=== PATIENT | male | born 1945 | race Caucasian/White ===

== ENCOUNTER → 2020-06-07 | Outpatient (CLI) | payer MEDICARE ==
[~2020-06-07] MED LIST: ALDACTONE50 MG PO; COUMADIN 77.5 MG/TAB PO; INDERAL 10MG10 MG PO; LACTULOSE10 GM/153 PO; LASIX 40MG TABL40 MG PO; PROTONIX 40MG T40 MG PO
[2020-06-07 16:40] LABS: BASO # 0.1 (0.0-0.2); BASO % 1.3 % (0.0-2.0); EOS # 0.6 (0.0-0.7); EOS % 10.5 % (0-4.0); GRAN # 2.8 (1.4-6.5); GRAN % 51.8 % (42.2-75.2); HEMATOCRIT 37.7 % (42.0-52.0); HEMOGLOBIN 12.4 g/dl (13.5-18.0); LYMPH # 1.3 (1.2-3.4); LYMPH % 24.2 % (20.0-51.0); MEAN CELL VOLUME 89 fl (80.0-100.0); MEAN CORPUSCULAR HEMOGLOBIN 29 pg (27.0-31.0); MEAN CORPUSCULAR HGB CONC 33 g/dl (33.0-37.0); MEAN PLATELET VOLUME 9.6 fl (7.4-10.4); MONO # 0.7 (0.1-0.6); PLATELET COUNT 162 K/mm3 (130-400); RED BLOOD COUNT 4.23 M/mm3 (4.20-5.60); REDCELL DISTRIBUTION WIDTH-CV 17.8 % (11.5-14.5)
[2020-06-07 16:49] LABS: INR 5.4 (0.8-3.0); PROTHROMBIN TIME 61.1 SECONDS (9.7-12.8)
[2020-06-07 17:03] LABS: ALBUMIN 3.4 gm/dL (3.5-5.0); BILIRUBIN,TOTAL 2.7 mg/dL (0.0-1.0); CALCIUM 8.7 mg/dL (8.4-10.2); CREATININE, serum 1.14 (0.66-1.25); POTASSIUM 4.5 mmol/L (3.4-5.0); TOTAL PROTEIN 8.5 gm/dL (6.4-8.2)
== END ==
LOC: COL.LAB 16:11
PROVIDERS: Family Medicine
DX: K74.69 Other cirrhosis of liver (principal); K72.90 Hepatic failure, unspecified without coma

== ENCOUNTER 2020-06-08 21:06 | Inpatient (IN) | payer MEDICARE ==
[~2020-06-08] VITALS: Ht 177.8 cm; Wt 75.1 kg
[~2020-06-08 21:06] MED LIST changes: -ALDACTONE50 MG PO; -COUMADIN 77.5 MG/TAB PO; -INDERAL 10MG10 MG PO; -LACTULOSE10 GM/153 PO; -PROTONIX 40MG T40 MG PO
[2020-06-08 22:58] LABS: BASO % 0.7 % (0.0-2.0); EOS # 0.1 (0.0-0.7); EOS % 2.2 % (0-4.0); GRAN # 2.5 (1.4-6.5); GRAN % 61.6 % (42.2-75.2); HEMATOCRIT 37.2 % (42.0-52.0); HEMOGLOBIN 12.4 g/dl (13.5-18.0); LYMPH % 24.2 % (20.0-51.0); MEAN CELL VOLUME 89 fl (80.0-100.0); MEAN CORPUSCULAR HEMOGLOBIN 30 pg (27.0-31.0); MEAN CORPUSCULAR HGB CONC 33 g/dl (33.0-37.0); MEAN PLATELET VOLUME 9.7 fl (7.4-10.4); MONO # 0.5 (0.1-0.6); MONO % 11.1 % (1.7-9.3); PLATELET COUNT 141 K/mm3 (130-400); RED BLOOD COUNT 4.19 M/mm3 (4.20-5.60); REDCELL DISTRIBUTION WIDTH-CV 18.1 % (11.5-14.5)
[2020-06-08 23:02] LABS: INR 4.1 (0.8-3.0)
[2020-06-08 23:05] LABS: ALBUMIN 3.3 gm/dL (3.5-5.0); BILIRUBIN,TOTAL 3.2 mg/dL (0.0-1.0); CALCIUM 8.3 mg/dL (8.4-10.2); CREATININE, serum 0.86 (0.66-1.25); POTASSIUM 4.1 mmol/L (3.4-5.0); TOTAL PROTEIN 8.3 gm/dL (6.4-8.2)
[2020-06-08 23:11] LABS: PROTHROMBIN TIME 46.1 SECONDS (9.7-12.8)
[2020-06-09] VITALS (456 sets, daily range): BP systolic 92–113; BP diastolic 53–72; PULSE 45–66; TEMP 97.5–98.9; O2SAT 70–100
[2020-06-09 01:17] LABS: HEMATOCRIT 37.4 % (42.0-52.0); HEMOGLOBIN 12.3 g/dl (13.5-18.0)
--- NOTE | 2020-06-09 01:35 | NUR ---
Report received from Nataliya BRADFORD in ED. Pt resting in bed with song NICE at bedside. Medications reviewed at this time. Assisted to ICU bed 07 with trace evidence technician at this time. Once pt and staff arrived to ICU 07 pt as assisted with transfer from stretcher to bed X2 assist. Pt pleasant and cooperative with cares and assessment.
[2020-06-09] MEDS ORDERED: ALDACTONE50 MG PO (04:09)
[2020-06-09] MEDS ORDERED: PROTONIX 40MG T40 MG PO (04:11)
[2020-06-09] MEDS ORDERED: COUMADIN 77.5 MG/TAB PO (04:11)
[2020-06-09] MEDS ORDERED: INDERAL 10MG10 MG PO (04:12)
[2020-06-09] MEDS ORDERED: LACTULOSE10 GM/153 PO (04:15)
[2020-06-09 05:11] LABS: INR 3.6 (0.8-3.0); PROTHROMBIN TIME 40.7 SECONDS (9.7-12.8)
--- NOTE | 2020-06-09 08:00 | NUR ---
Shift assessment complete at this time. Plan of care reviewed at bedside with patient. Additional time taken to address any other needs or concerns. Vitals stable at this time. Pt denies pain or any other discomforts. Bed in low position, call light within reach, will continue to monitor.
[2020-06-09 09:59] LABS: EOS # 0.3 (0.0-0.7); EOS % 7.6 % (0-4.0); GRAN # 2.4 (1.4-6.5); GRAN % 59.6 % (42.2-75.2); HEMOGLOBIN 11.7 g/dl (13.5-18.0); LYMPH # 0.9 (1.2-3.4); LYMPH % 21.7 % (20.0-51.0); MEAN CELL VOLUME 90 fl (80.0-100.0); MEAN CORPUSCULAR HEMOGLOBIN 30 pg (27.0-31.0); MEAN CORPUSCULAR HGB CONC 33 g/dl (33.0-37.0); MEAN PLATELET VOLUME 9.6 fl (7.4-10.4); MONO # 0.4 (0.1-0.6); MONO % 10.1 % (1.7-9.3); PLATELET COUNT 130 K/mm3 (130-400); RED BLOOD COUNT 3.96 M/mm3 (4.20-5.60); REDCELL DISTRIBUTION WIDTH-CV 17.9 % (11.5-14.5)
[2020-06-09 10:08] LABS: HEMATOCRIT 35.6 % (42.0-52.0)
[2020-06-09 10:17] LABS: ALBUMIN 2.8 gm/dL (3.5-5.0); BILIRUBIN,TOTAL 2.9 mg/dL (0.0-1.0); CALCIUM 8.3 mg/dL (8.4-10.2); CREATININE, serum 0.87 (0.66-1.25); POTASSIUM 3.7 mmol/L (3.4-5.0); TOTAL PROTEIN 7.6 gm/dL (6.4-8.2)
--- NOTE | 2020-06-09 12:00 | NUR ---
Pt resting comfortably in bed. Denies pain or any other discomfort at this time. Vitals stable. Bed in low position, call light within reach, will continue to monitor.
--- NOTE | 2020-06-09 12:28 | NUR ---
stopped by but nothing needed at this time.
--- NOTE | 2020-06-09 14:02 | NUR ---
Plan: Plan is unknown at this time. Assessment: SW's met with patient in room about care plan. Patient reports that he resides in [place] with his nephew [place] who is also the DPOA> Lin , . Patient reports that he has only lived here from a week approx. Patient reports that he uses a cane and walker. PCP is Dr. Elma Alves. Patient reports that he was able to drive about a week ago. Patient Action: Will continue to follow for additional supports.
--- NOTE | 2020-06-09 16:00 | NUR ---
Pt resting comofortably in bed. Denies pain or any other discomforts. Bed in low position, call light within reach, will continue to monitor. Vitals stable at this time.
[2020-06-09 16:15] LABS: HEMATOCRIT 37.3 % (42.0-52.0); HEMOGLOBIN 12.2 g/dl (13.5-18.0)
--- NOTE | 2020-06-09 17:17 | NUR ---
DIET CHANGED TO LOW NA PT TOLERATED LUNCH PER DR RODRIGUEZ'S ORDER
--- NOTE | 2020-06-09 18:24 | NUR ---
PT TRANSFERED TO UNIT @ 1800 ACCOMPANIED BY NURSE. AOX4. DENIES PAIN. ABD LARGE AND ROUNDED FIRM. KNOWN ASCITES. SKIN ASSESSMENT REVEALED A BLANCHABLE REDNESS TO COCCYX. PT EDUCATED ON PRESSURE ULCER PREVENTION. ON 3L OXYMASK O2 SAT 92%. IV TO RT WRIST INTACT. REFUSED BRIEF.
--- NOTE | 2020-06-09 20:00 | NUR ---
Report received, assumed care for pairer. Assessment complete. A&Ox3. Noted to be jaundice. Abdomen distended and firm. Denies pain/nausea/shortness of breath. VS are stable. INT to right forearm flushes without difficulty. O2@3L/NC. Denies questions/concerns. Call light in reach. Will monitor.
[2020-06-10 00:39] VITALS: BP 99/73; PULSE 66; TEMP 98.2
--- NOTE | 2020-06-10 05:00 | NUR ---
Rested off and on this shift. Denied pain/shortness of breath/nausea. Has tolerated diet. Refused lactulose. Has been up to commode to attempt to have bowel movement. Is very weak and a two assist transfer. Denies needs. Call light in reach. Will monitor.
[2020-06-10 05:23] VITALS: BP 100/65; PULSE 58; TEMP 98.2
[2020-06-10 08:50] VITALS: BP 96/64; PULSE 80; TEMP 98.2
[2020-06-10 09:29] LABS: BASO % 0.5 % (0.0-2.0); EOS # 0.3 (0.0-0.7); EOS % 7.9 % (0-4.0); GRAN # 2.6 (1.4-6.5); GRAN % 66.2 % (42.2-75.2); HEMOGLOBIN 11.9 g/dl (13.5-18.0); LYMPH # 0.8 (1.2-3.4); LYMPH % 19.3 % (20.0-51.0); MEAN CELL VOLUME 92 fl (80.0-100.0); MEAN CORPUSCULAR HEMOGLOBIN 30 pg (27.0-31.0); MEAN CORPUSCULAR HGB CONC 32 g/dl (33.0-37.0); MEAN PLATELET VOLUME 9.9 fl (7.4-10.4); MONO # 0.2 (0.1-0.6); MONO % 5.8 % (1.7-9.3); PLATELET COUNT 139 K/mm3 (130-400); RED BLOOD COUNT 4.02 M/mm3 (4.20-5.60)
[2020-06-10 09:31] LABS: HEMATOCRIT 36.9 % (42.0-52.0)
[2020-06-10 09:40] LABS: CALCIUM 8.4 mg/dL (8.4-10.2); CREATININE, serum 0.86 (0.66-1.25); POTASSIUM 4.1 mmol/L (3.4-5.0)
[2020-06-10 09:42] LABS: INR 1.9 (0.8-3.0); PROTHROMBIN TIME 20.9 SECONDS (9.7-12.8)
[2020-06-10 10:08] LABS: BILIRUBIN,DIRECT 0.4 mg/dL (0.0-0.4)
[2020-06-10 12:36] VITALS: BP 90/60; PULSE 74; TEMP 98.2
[2020-06-10 16:20] VITALS: BP 109/69; PULSE 69; TEMP 98
--- NOTE | 2020-06-10 18:30 | NUR ---
ASIDE FROM THE PATIENT REFUSING AFTERNOON LACTULOSE, PT HAD AN UNEVENTFUL DAY. NO FURTHER CONCERNS. WILL ENDORSE TO NIGHT RN.
[2020-06-10 20:30] VITALS: BP 103/68; PULSE 66; TEMP 98.4
--- NOTE | 2020-06-10 20:30 | NUR ---
Initial shift assessment done-- has been resting quietly for the past hour- no requests, Tele on, refusing lactulose tonight- states will take in the morning, VSS
[2020-06-11 01:00] VITALS: BP 95/54; PULSE 64; TEMP 98.4
[2020-06-11 04:10] VITALS: BP 96/57; PULSE 60; TEMP 97.9
--- NOTE | 2020-06-11 06:04 | NUR ---
Did sleep well last night- Up to BSC x1 for urine,no stool. VSS.
[2020-06-11 07:09] VITALS: BP 102/66; PULSE 61; TEMP 98.2
[2020-06-11 07:12] LABS: BASO % 0.8 % (0.0-2.0); EOS # 0.3 (0.0-0.7); EOS % 8.3 % (0-4.0); GRAN # 1.9 (1.4-6.5); GRAN % 53.4 % (42.2-75.2); HEMOGLOBIN 11.5 g/dl (13.5-18.0); LYMPH # 0.9 (1.2-3.4); LYMPH % 26.1 % (20.0-51.0); MEAN CELL VOLUME 91 fl (80.0-100.0); MEAN CORPUSCULAR HEMOGLOBIN 30 pg (27.0-31.0); MEAN CORPUSCULAR HGB CONC 33 g/dl (33.0-37.0); MEAN PLATELET VOLUME 10.1 fl (7.4-10.4); MONO # 0.4 (0.1-0.6); MONO % 11.4 % (1.7-9.3); PLATELET COUNT 138 K/mm3 (130-400); RED BLOOD COUNT 3.85 M/mm3 (4.20-5.60); REDCELL DISTRIBUTION WIDTH-CV 17.9 % (11.5-14.5)
[2020-06-11 07:13] LABS: HEMATOCRIT 35.1 % (42.0-52.0)
[2020-06-11 07:22] LABS: ALBUMIN 2.7 gm/dL (3.5-5.0); BILIRUBIN,TOTAL 2.6 mg/dL (0.0-1.0); CALCIUM 8.3 mg/dL (8.4-10.2); CREATININE, serum 0.75 (0.66-1.25); POTASSIUM 4.1 mmol/L (3.4-5.0); TOTAL PROTEIN 7.4 gm/dL (6.4-8.2)
--- NOTE | 2020-06-11 09:10 | NUR ---
Initial visit; Patient thanked Tobacco Checkout Clerk for looking in on him and offering God's blessings.
[2020-06-11] MEDS ORDERED: LASIX 20MG TABL20 MG PO ×3 (10:20→10:21)
[2020-06-11 11:50] VITALS: BP 110/57; PULSE 63; TEMP 97
--- NOTE | 2020-06-11 15:32 | NUR ---
Stopperer Assembler attended clinical rounds and patient is ready for discharge today. KERRI met with patient, who lives with his niece Rola in [place]. KERRI spoke with Rola on the phone in patient's room. Patient and Rola are agreeable to Home Health and have selected [facility]. KERRI faxed a referral to Adela at [facility] who advised they can accept referral. KERRI faxed discharge orders. KERRI collaborated with Hospitalist to order exercise oximetry. Per RT, patient qualifies for 3 liters. KERRI collaborated with patient's niece Rola who advised patient was private paying for oxygen through [facility] but wants to switch to [facility]. KERRI faxed facesheet, order for oxygen, H&P, and RT assessment to [facility]. Rola reports they want a portable oxygen system and KERRI advised that per Jennifer at [facility], an assessment would have to be completed by [facility]'s RT. Rola is agreeable to this and advised that patient still has some oxygen tanks left over from [place] and they have a concentrator that was given to them by a friend. Rola reports they don't need anything from [facility] today, but would follow up to schedule RT assessment for a portable system. KERRI provided this update to Jennifer at [facility]. Earlier in the day, Rola advised patient would need a walker, but Rola now advised that patient actually has a walker. KERRI contacted Jennifer at [facility] and cancelled order for FWW. No additional needs at this time.
[2020-06-11 17:35] LABS: HEPATITIS B SURFACE ANTIGEN Negative (Negative); HEPATITIS C VIRUS ANTIBODY Negative (Negative)
[2020-06-12 03:44] LABS: HEPATITIS B CORE AB,TOTAL Positive (())
[2020-06-12 14:49] LABS: HEPATITIS AB (HAV) IGG INDEX 11.28 Index (<=1.00)
== END 2020-06-11 16:00 | disposition home or self-care (01) | DRG 813 ==
LOC: COL.ER 21:06 → ICU 23:20 → COL.ER 23:20 → MEDICAL 06-09 17:30 → ICU 06-09 17:30 → MEDICAL 06-09 17:30
PROVIDERS: Emergency Medicine; Internal Medicine Gastroenterology; Physician Assistant; Student in an Organized Health Care Education/Training Program; ADMIT Hospitalist
DX: D68.32 Hemorrhagic disorder due to extrinsic circulating anticoagulants (principal); J96.21 Acute and chronic respiratory failure with hypoxia; R04.0 Epistaxis; I45.10 Unspecified right bundle-branch block; T45.515A Adverse effect of anticoagulants, initial encounter; K74.69 Other cirrhosis of liver; Z66 Do not resuscitate; Z86.718 Personal history of other venous thrombosis and embolism; Z79.01 Long term (current) use of anticoagulants
CPT/HCPCS: 99223-AI; 99231-AI; 99232-AI; C9113; J0696; J7030